=== PATIENT | male | born 1985 | race Caucasian/White ===

== ENCOUNTER 2018-11-12 09:03 | Emergency (ER) | payer MEDICARE, OTHER ==
[~2018-11-12] VITALS: Ht 185.4 cm; Wt 128.8 kg
[2018-11-12 09:03] VITALS: BP 138/92
[~2018-11-12 09:03] MED LIST: ACET65TA OR; ALLE25CA OR; AMBI10TA OR; BACL10TA2 OR; CYMBALTA PO; DEPA500T2 OR; LACT10SO PO; LEXA1TAB2 OR; PRAZOSIN PO; QUET30TA OR; SERO1TAB OR; TRAZ100T OR; norco OR
[2018-11-12] MEDS ORDERED: OXYC1TAB23 PO ×2 (09:10)
[2018-11-12] MEDS ORDERED: VENL75TA2 PO (09:10)
[2018-11-12] MEDS ORDERED: TRAM50TA2 PO (09:10)
[2018-11-12] MEDS ORDERED: ATOR40TA75 PO (09:10)
[2018-11-12] MEDS ORDERED: PRED10TA2 PO (09:25)
[2018-11-12] MEDS ORDERED: ROBA500T PO (09:25)
== END 2018-11-12 09:43 | disposition home or self-care (01) ==
LOC: M ED 09:03
DX: S39.012A Strain of muscle, fascia and tendon of lower back, initial encounter (principal); X50.9XXA Other and unspecified overexertion or strenuous movements or postures, initial encounter; Y92.89 Other specified places as the place of occurrence of the external cause; E78.5 Hyperlipidemia, unspecified; F33.9 Major depressive disorder, recurrent, unspecified; F41.9 Anxiety disorder, unspecified; Z87.891 Personal history of nicotine dependence

== ENCOUNTER → 2019-05-04 | Outpatient (CLI) | payer OTHER ==
[~2019-05-04] MED LIST changes: +ATOR40TA75 PO; +OXYC1TAB23 PO; +PRED10TA2 PO; +ROBA500T PO; +TRAM50TA2 PO; +VENL75TA2 PO
--- NOTE | 2019-05-15 02:10 | ECWPNPC ---
PATIENT NAME: LISY ANGULO : 1985 GENDER: MALE VISIT DATE: 05/04/2019 DISCHARGE DATE: 05/04/19 1324 VISIT LOCKED DATE TIME: PHYSICIAN: KOTA BARRAGAN MD RESOURCE: KOTA BARRAGAN MD REASON FOR APPOINTMENT 1. CHRONIC LOW BACK/NECKPAIN HISTORY OF PRESENT ILLNESS NEW PATIENT CONSULT: WHEN DID YOUR PAIN FIRST START? . BRIEFLY DESCRIBE HOW YOUR PAIN STARTED? . HOW DOES YOUR PAIN CHANGE WITH TIME? . DOES YOUR PAIN AWAKEN YOU FROM SLEEP? . HOW MANY HOURS OF SLEEP DO YOU NORMALLY GET? . ANY DIAGNOSTIC TESTING? . FACILITY WHERE TESTS WERE DONE? ____. PAIN TREATMENT TREATMENT YES CANCER HAVE YOU EVER HAD ANY TYPE OF CANCER?NO NO. 34 YEAR OLD MALE PATIENT WITH A HISTORY OF CHRONIC BACK PAIN. THE PATIENT DESCRIBES THE PAIN ACHING, SORE, SHARP, STABBING, SHOOTING, DAILY, AND CONTINUOUS WITH A PAIN SCORE OF 4-10/10 DEPENDING ON PHYSICAL ACTIVITY. THE PATIENT STATES HIS PAIN IS LOCATED MAINLY IN HIS THORACIC AND LOWER BACK, WITH PAIN RADIATING DOWN BOTH LEGS. 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 THE PATIENT SAYS HIS PAIN IS AFFECTING HIS ABILITY TO PERFORM HIS DAILY ACTIVITIES SUCH GROCERY SHOPPING, CLEANING, AND WORKING AROUND HIS HOUSE. THE PATIENT SAYS HE HAS BEEN RECEIVING INJECTION THERAPY IN [place] AND HE IS INTERESTED IN RECEIVING THEM HERE INSTEAD. PATIENT DENIES UNEXPLAINABLE WEIGHT LOSS, FEVER, CHILLS, NEW CHANGES ON HIS URINARY OR BOWEL CONTROL. PAIN SCREENING: PATIENT HAS A COMPLAINT OF ACUTE OR CHRONIC PAIN :YES FALL RISK SCREENING: SCREENING : NO FALLS IN THE PAST YEAR. MISHRA INVENTORY: QUESTIONNAIRE ASSESSEDTBD SCORE VALUE CALCULATED TBD CURRENT MEDICATIONS TAKING CETIRIZINE HCL 10 MG TABLET 1 TABLET ORALLY ONCE A DAY TAKING HYDROXYZINE HCL 50 MG TABLET 1 TABLET NEEDED ORALLY 3 TIMES A DAY NEEDED TAKING OXYCODONE HCL 5 MG TABLET 1 1/2 TABLETS NEEDED ORALLY TWICE A DAY TAKING PRAZOSIN HCL 2 MG CAPSULE 1 CAPSULE AT BEDTIME ORALLY ONCE A DAY TAKING ROSUVASTATIN CALCIUM 40 MG TABLET 1 TABLET ORALLY ONCE A DAY TAKING TRAMADOL HCL 50 MG TABLET 2 TABLETS NEEDED ORALLY 3 TIMES A DAY NEEDED TAKING VENLAFAXINE HCL ER 75 MG CAPSULE EXTENDED RELEASE 24 HOUR 3 CAPSULES WITH FOOD ORALLY ONCE A DAY TAKING CHOLECALCIFEROL 1000 UNIT CAPSULE 1 CAPSULE ORALLY ONCE A DAY NOT-TAKING MINIPRESS 1 MG CAPSULE 1 CAP(S) ORALLY PRN NOT-TAKING CITALOPRAM HYDROBROMIDE 20 MG TABLET 1 TABLET ORALLY ONCE A DAY NOT-TAKING LUNESTA 1 MG TABLET 1 TABLET IMMEDIATELY BEFORE BEDTIME ORALLY ONCE A DAY DISCONTINUED VENLAFAXINE HCL 75 MG TABLET 1 TABLET WITH FOOD ORALLY ONCE A DAY MEDICATION LIST REVIEWED AND RECONCILED WITH THE PATIENT PAST MEDICAL HISTORY DEPRESSION L SHOULDER PAIN INSOMNIA BORDERLINE DIABETES ELEVATED CHOLESTEROL INCREASED APPETITE SLEEP APNEA MIGRAINES LOW BACK PAIN NECK PAIN ALLERGIES N.K.D.A. SURGICAL HISTORY DENIES PAST SURGICAL HISTORY FAMILY HISTORY FATHER: ALIVE 52 YRS MOTHER: ALIVE 50 YRS SIBLINGS: ALIVE 3 SISTER(S) - HEALTHY. 2 SON(S) , 3 DAUGHTER(S) - HEALTHY. NEGATIVE FOR ANY UROLOGIC DISEASE. SOCIAL HISTORY GENERAL: TOBACCO USE ARE YOU A:NONSMOKER HOUSING: HOME. EDUCATION LEVEL OF EDUCATION:FINISHED HIGH SCHOOL DIET: REGULAR. LANGUAGE LANGUAGES SPOKEN:MAURITIAN RECREATIONAL DRUG USE DRUG USE?NO EXERCISE: WALKS. LEARNING BARRIERS / SPECIAL NEEDS BARRIERS TO LEARNING?YES READING AND WRITING LEARNING DISABILITY. IS ABLE TO READ AT MORE THAN 6TH GRADE LEVEL. HEARING IMPAIRED?NO VISION IMPAIRED?NO COGNITIVELY IMPAIRED?NO READINESS TO LEARN?NO LEARNING PREFERENCES?YES DEMONSTRATION AND EXPLANATION LEARNING CAPABILITIES PRESENT?NO EMOTIONAL BARRIERS?NO SPECIAL DEVICES?NO ITEM REPAIR MANAGER NEEDED?NO PAIN CLINIC PFS, CLERGY, PUBLIC HEALTH REFERRALS PFS REFERRAL NEEDED?NO CLERGY REFERRAL NEEDED?NO PUBLIC HEALTH REFERRAL NEEDED?NO WAS THE PROVIDER NOTIFIED OF ANY PERTINENT INFO?NO HAS THE PATIENT BEEN EDUCATED REGARDING HIS/HER PLAN OF CARE?YES HAS THE PATIENT BEEN EDUCATED REGARDING PAIN, THE RISK FOR PAIN, THE IMPORTANCE OF EFFECTIVE PAIN MANAGEMENT, AND THE PAIN ASSESSMENT PROCESS?YES LATEX QUESTIONNAIRE LATEX ALLERGY : HAVE YOU EVER DEVELOPED ANY TYPE OF REACTION AFTER HANDLING LATEX PRODUCTS SUCH RUBBER GLOVES, CONDOMS, DIAPHRAGMS, BALLOONS, SOCKS, OR UNDERWEAR?NO LATEX ALLERGY : HAVE YOU EVER DEVELOPED ANY TYPE OF REACTION DURING OR AFTER DENTAL APPOINTMENT, VAGINAL/RECTAL EXAMINATION, SURGICAL PROCEDURE, OR ANY OTHER EXPOSURE?NO LATEX RISK : HAVE YOU EVER HAD ANY DIFFICULTY BREATHING OR HIVES AFTER EATING OR HANDLING ANY FRUITS, OR VEGETABLES; SUCH KIWI, BANANAS, STONE FRUITS, OR CHESTNUTSNO LATEX RISK : DO YOU HAVE A PREVIOUS PERSONAL HISTORY OF MORE THAN NINE SURGERIES, SPINA BIFIDA, OR REPEATED CATHERIZATIONS? NO LATEX RISK : ARE YOU FREQUENTLY EXPOSED TO LATEX PRODUCTS IN YOUR OCCUPATION?NO DATE ASKED : 05/04/2019 CAFFEINE CAFFEINE USE?YES HOW OFTEN AND HOW MUCH? COFFEE 1 CUP PER DAY ADVANCE DIRECTIVE ADVANCE DIRECTIVE DISCUSSED WITH PATIENT:YES INFORMATION OFFERED AND DECLINED. HOAHAOISM [id number] NONE MARITAL STATUS: SINGLE. ALCOHOL SCREENING DID YOU HAVE A DRINK CONTAINING ALCOHOL IN THE PAST YEAR?NO POINTS0 INTERPRETATIONNEGATIVE OCCUPATION: POLICE. HOSPITALIZATION/MAJOR DIAGNOSTIC PROCEDURE DENIES PAST HOSPITALIZATION REVIEW OF SYSTEMS REVIEWED BY: PROVIDER: KOTA BARRAGAN MD . CONSTITUTIONAL: ANY CHANGE IN YOUR MEDICAL CONDITION? NO . CHILLS NO . FEVER NO . INFECTION: DO YOU HAVE NEW INFECTIONS? YES - EAR INFECTION . DO YOU HAVE HISTORY OF MRSA? NO . MUSCULOSKELETAL: ANY NEW PATTERNS OF PAIN OR NUMBNESS? NO . SYTEMIC LUPUS NO . GASTROENTEROLOGY: ANY NEW CHANGE IN BOWEL CONTROL? NO . BARRETTS ESOPHAGUS NO . CIRRHOSIS NO . HEPATITIS NO . LIVER FAILURE NO . ACID REFLUX NO . UNEXPLAINED WEIGHT LOSS NO . GENITOURINARY: ANY NEW CHANGE IN BLADDER CONTROL? NO . IS THERE A CHANCE YOU COULD BE ? NO . HEMATOLOGY/LYMPH: DO YOU TAKE ANY BLOOD THINNERS? (FOR EXAMPLE- COUMADIN, PLAVIX, AGGRENOX, PLATEL, PRADAXA, OR XARELTO) NO . WHEN WAS YOUR LAST DOSE? DATE: TIME: . LOW PLATELET COUNT NO . SICKLE CELL DISEASE NO . VON WILLIEBRANDS NO . FACTOR V LEIDEN NO . THALLASEMIA NO . ANEMIA NO . EASY BRUISING NO . NEUROLOGY: HAVE YOU FALLEN IN THE PAST 12 MONTHS? YES . ANY NEW EXTREMITY NUMBNESS OR WEAKNESS? NO . HEAD INJURY NO . DEMENTIA NO . CEREBRAL PALSY NO . MULTIPLE SCLEROSIS NO . DIZZINESS NO . HEADACHE NO . STROKES NO . VERTIGO NO . CARDIOLOGY: DO YOU HAVE A PACEMAKER OR DEFIBRILLATOR? NO . ANGINA NO . HEART ATTACK NO . HEART SURGERY NO . CONGESTIVE HEART FAILURE/FLUID OVERLOAD NO . CHEST PAIN NO . HIGH BLOOD PRESSURE NO . IRREGULAR HEART BEAT NO . RESPIRATORY: HAVE YOU BEEN SICK IN THE PAST WEEK? NO . FEVER NO . FLU LIKE SYMPTOMS? NO . CPAP NO . BYPAP NO . ASTHMA NO . EMPHYSEMA NO . CHRONIC LUNG DISEASES NO . SHORTNESS OF BREATH ON EXERTION NO . DO YOU USE ANY TYPE OF TOBACCO (SMOKE, SMOKELESS, CHEW)? NO . COUGH NO . SNORING NO . INTEGUMENTARY: DO YOU HAVE ANY RASHES OR OPEN SORES? NO . ALLERGIC/IMMUNO: ARE YOU ALLERGIC TO IV DYE? NO . ANY NEW ALLERGIES? NO . PSYCHIATRIC: DO YOU HAVE THOUGHTS OF HURTING YOURSELF OR SOMEONE ELSE? NO . ARE YOU ABUSED, NEGLECTED, OR IN AN UNSAFE ENVIRONMENT? NO . ENDOCRINOLOGY: ARE YOU DIABETIC? NO . THYROID DISORDER NO . OTHER: DO YOU NEED ANY PRESCRIPTIONS? NO . IF YES, PLEASE LIST: ____ . ANY NEW PROBLEMS WITH YOUR MEDICATIONS? NO . WHEN DID YOU LAST EAT? ____ . WHEN DID YOU LAST DRINK? ____ . WHAT DID YOU LAST DRINK? ____ . NAME OF PERSON DRIVING YOU HOME? ____ . DO YOU HAVE ANY OTHER QUESTIONS OR CONCERNS NO . VITAL SIGNS WT 275.2 LBS, HT 73 IN, BMI 36.30 INDEX, BP 137/90 MM HG, HR 59 /MIN, RR 18 /MIN, TEMP 96.9 F, OXYGEN SAT % 99%, NA INITIALS SC 11:45, REVIEWED BY: YESSENIA. EXAMINATION GENERAL EXAMINATION: PATIENT IS ALERT O X 3 AND COOPERATIVE. LUNGS CLEAR, TO AUSCULTATION. HEART: NO MURMURS OR GALLOPS; FACIAL CRANIAL NERVES ARE GROSSLY NORMAL. GOOD SYMMETRY OF FACIAL MUSCLE MOVEMENT. NORMAL VISUAL COTTER. TENDERNESS OVER THE PARASPINAL MUSCLE GROUP OF THE LOW BACK. PRESENCE OF BANDS OF TISSUE AND TRIGGER POINTS WITH RESTRICTION OF MOVEMENT OF THE LOW BACK. PAIN INCREASES OVER THE LUMBAR FACET JOINTS WITH EXTENSION AND LATERAL ROTATION OF THE LOW BACK. MRI OF THE LUMBAR SPINE DONE ON 10/29/2011 SHOWS BULGING DISCS AND FACET ARTHROPATHY CHANGES AT MULTIPLE LEVELS. ASSESSMENTS MYALGIA, OTHER SITE - M79.18 (PRIMARY) OTHER CHRONIC PAIN - G89.29 LOW BACK PAIN - M54.5 SPONDYLOSIS WITHOUT MYELOPATHY OR RADICULOPATHY, LUMBAR REGION - M47.816 TREATMENT MYALGIA, OTHER SITE CLINICAL NOTES: WE DISCUSSED SEVERAL ISSUES WITH MR. ANGULO'S PAIN MANAGEMENT CASE. DUE TO THE TRIGGER POINTS, BANDS OF TISSUE, AND RESTRICTION OF MOVEMENT, I WOULD LIKE TO MOVE FORWARD WITH A LOW BACK TRIGGER POINT INJECTION AT THIS TIME. WE DISCUSSED THE BENEFITS, RISKS, AND ALTERNATIVES OF THE INJECTION AND THE PATIENT WOULD LIKE TO PROCEED. I AM LOOKING FOR LONG LASTING PAIN RELIEF FROM THIS INJECTION FOR THE PATIENT. THE PATIENT IS CURRENTLY RECEIVING MEDICATION MANAGEMENT WITH HIS PRIMARY CARE PROVIDER AND WILL CONTINUE RECEIVING MEDICATION THERE. I AM ORDERING FOR AN UPDATED LUMBAR MRI SINCE THE LAST ONE WAS DONE IN 2011 AND TO SEE IF HIS CONDITION HAS CHANGED. THE PATIENT WILL FOLLOW UP IN SEVERAL WEEKS AFTER THE INJECTION TO SEE HOW IT IS HELPING WITH HIS PAIN AND ALSO TO REVIEW HIS MRI RESULTS. INSTRUCTIONS WERE GIVEN, QUESTIONS WERE ANSWERED, PATIENT REPORTS UNDERSTANDING AND AGREES WITH THE PLAN. I, NITHYA MORRISSEY, DOCUMENTED THE ABOVE INFORMATION ACTING A SCRIBE FOR DR. BARRAGAN. I HAVE REVIEWED THE ABOVE DOCUMENT, WRITTEN BY NITHYA ROMAN AND I VERIFY THAT IT IS ACCURATE. DEAR ELSA GONZALEZ NP: THANK YOU FOR YOUR KIND REFERRAL OF LISY ANGULO. IF YOU WANT TO DISCUSS HIS CASE WITH ME PLEASE CALL ME AT THE PAIN CENTER AT [phone]. SINCERELY, KOTA BARRAGAN MD PAIN MEDICINE . OTHER CHRONIC PAIN [facility] MRI LUMBAR W/O CONTRAST (CPT [id number],ASHLEY 05/04/2019 2:25:52 PM > AUTH [id number]. FOR 180 DAYS FROM 03-05-19 FOR TX PERTAINING TO LOW BACK/NECK PAIN, INCLUDES INJECTIONS ,DIAGNOSTICS ETC. NO AUTH REQUIRED. LOW BACK PAIN [facility] MRI LUMBAR W/O CONTRAST (CPT [id number],ASHLEY 05/04/2019 2:25:52 PM > AUTH [id number]. FOR 180 DAYS FROM 03-05-19 FOR TX PERTAINING TO LOW BACK/NECK PAIN, INCLUDES INJECTIONS ,DIAGNOSTICS ETC. NO AUTH REQUIRED. OTHERS NOTES: PATIENT EDUCATION WAS PRINTED, REVIEWED WITH PT. PREVENTIVE MEDICINE PAIN CLINIC TEACHING: THE PATIENT HAS BEEN EDUCATED REGARDING HIS/HER PLAN OF CARE : REVIEWED AND DISCUSSED PROCEDURE INSTRUCTIONS. PROCEDURE CODES FA211 ESTABILISHED PATIENT [facility] FAC[facility] CHARGE G8427 CURRENT MEDS W/DOSAGES DOCUMENTED G8730 PAIN ASSESS POS TOOL F/U PLAN DOC DISPOSITION & COMMUNICATION FOLLOW UP REASON: TPI/ORDERED LUMBAR MRI ELECTRONICALLY SIGNED BY KOTA BARRAGAN MD, MD ON 05/14/2019 AT 12:25 PM EST DISCLAIMER : THIS IS A VISIT SUMMARY EXTRACTED FROM THE [employer] CHART. IT IS NOT A COPY OF THE [employer] PROGRESS NOTE. MARIVEL
== END ==
LOC: M PAIN 11:30
PROVIDERS: ATTEND Anesthesiology
DX: M79.18 Myalgia, other site (principal); G89.29 Other chronic pain; M54.5 Low back pain; M47.816 Spondylosis without myelopathy or radiculopathy, lumbar region; Z86.59 Personal history of other mental and behavioral disorders; G47.00 Insomnia, unspecified; G47.30 Sleep apnea, unspecified; G43.909 Migraine, unspecified, not intractable, without status migrainosus; Z79.899 Other long term (current) drug therapy

== ENCOUNTER → 2019-05-19 | Outpatient (CLI) | payer OTHER ==
--- NOTE | 2019-05-21 10:31 | REP ---
MRI lumbar spine: 05/19/2019. Indication: Low back pain. Comparison: 11/06/2011. Technique: Multiplanar short and long TR sequences of the lumbar spine were obtained without IV Gadolinium. Findings: Vertebral body alignment is within anatomical limits. Disc dessication is noted at L3/L4, L4/L5 and L5/S1. Very rudimentary S1/S2 disc is noted. No significant paraspinal soft tissue abnormalities are detected. L1/L2 and L2/L3: There is no focal disc herniation or significant spinal canal / neural foraminal narrowing. L3/L4: Mild diffuse disc bulge and bilateral facet arthropathy are present with moderate bilateral recess narrowing. The neural foramen are patent. L4/L5: Mild diffuse disc bulge and bilateral facet arthropathy are present. Mild to moderate recess narrowing bilaterally. The neural foramen are patent. L5/S1: There is a small posterior central disc protrusion superimposed on a mild diffuse disc bulge. Mild left greater than right facet arthropathy is noted. There is mild bilateral recess narrowing. There is moderate right and mild to moderate left neural foraminal narrowing. Impression: Multilevel degenerative sequelae as described without severe spinal stenosis. Electronically Signed by Boyd Alonzo DO 05/21/2019 10:22 A
== END ==
LOC: M RAD 11:31
PROVIDERS: ATTEND Anesthesiology
DX: G89.29 Other chronic pain (principal); M51.26 Other intervertebral disc displacement, lumbar region; M51.27 Other intervertebral disc displacement, lumbosacral region

== ENCOUNTER → 2019-06-25 | Outpatient (CLI) | payer OTHER ==
[~2019-06-25] MED LIST changes: +BUPIVACAINE HCL 0.25% 10 ML VIAL As Ordered ONE; +BUPIVACAINE HCL 0.25% 30 ML VIAL As Ordered ONE; +NORCO, ANEXSIA 5/325MG TABLET (HYDROcodone/ACETAMINOPHEN) As Ordered ONE; +TRIAMCINOLONE ACETONIDE SUSP 40 MG/ML VIAL (J3301) As Ordered ONE; +diazePAM 5 MG TAB As Ordered ONE
--- NOTE | 2019-06-27 01:41 | ECWPNPC ---
PATIENT NAME: LISY ANGULO : 1985 GENDER: MALE VISIT DATE: 06/25/2019 DISCHARGE DATE: 06/25/191702 VISIT LOCKED DATE TIME: PHYSICIAN: KOTA BARRAGAN MD RESOURCE: KOTA BARRAGAN MD REASON FOR APPOINTMENT 1. TPI LOW BACK HISTORY OF PRESENT ILLNESS HISTORY OF PRESENT ILLNESS: PAIN THE PATIENT DESCRIBES THE PAIN... FALL RISK SCREENING: SCREENING :NO FALLS REPORTED IN THE LAST YEAR CURRENT MEDICATIONS TAKING CETIRIZINE HCL 10 MG TABLET 1 TABLET ORALLY ONCE A DAY, NOTES: 06/25/19729 TAKING HYDROXYZINE HCL 50 MG TABLET 1 TABLET NEEDED ORALLY 3 TIMES A DAY NEEDED, NOTES: 06/22/19 TAKING OXYCODONE HCL 5 MG TABLET 1 1/2 TABLETS NEEDED ORALLY TWICE A DAY, NOTES: 06/25/19729 TAKING PRAZOSIN HCL 2 MG CAPSULE 1 CAPSULE AT BEDTIME ORALLY ONCE A DAY, NOTES: 06/24/191999 TAKING ROSUVASTATIN CALCIUM 40 MG TABLET 1 TABLET ORALLY ONCE A DAY, NOTES: 06/24/191699 TAKING TRAMADOL HCL 50 MG TABLET 2 TABLETS NEEDED ORALLY 3 TIMES A DAY NEEDED, NOTES: 06/25/19729 TAKING VENLAFAXINE HCL ER 75 MG CAPSULE EXTENDED RELEASE 24 HOUR 3 CAPSULES WITH FOOD ORALLY ONCE A DAY, NOTES: 06/25/19729 TAKING CHOLECALCIFEROL 1000 UNIT CAPSULE 1 CAPSULE ORALLY ONCE A DAY, NOTES: 06/25/19729 NOT-TAKING MINIPRESS 1 MG CAPSULE 1 CAP(S) ORALLY PRN NOT-TAKING CITALOPRAM HYDROBROMIDE 20 MG TABLET 1 TABLET ORALLY ONCE A DAY NOT-TAKING LUNESTA 1 MG TABLET 1 TABLET IMMEDIATELY BEFORE BEDTIME ORALLY ONCE A DAY MEDICATION LIST REVIEWED AND RECONCILED WITH THE PATIENT PAST MEDICAL HISTORY DEPRESSION - PTSD L SHOULDER PAIN INSOMNIA BORDERLINE DIABETES ELEVATED CHOLESTEROL INCREASED APPETITE SLEEP APNEA MIGRAINES LOW BACK PAIN NECK PAIN ALLERGIES N.K.D.A. SURGICAL HISTORY DENIES PAST SURGICAL HISTORY FAMILY HISTORY FATHER: ALIVE 52 YRS MOTHER: ALIVE 50 YRS SIBLINGS: ALIVE 3 SISTER(S) - HEALTHY. 2 SON(S) , 3 DAUGHTER(S) - HEALTHY. NEGATIVE FOR ANY UROLOGIC DISEASE. SOCIAL HISTORY GENERAL: TOBACCO USE ARE YOU A:NONSMOKER HOUSING: HOME. EDUCATION LEVEL OF EDUCATION:FINISHED HIGH SCHOOL DIET: REGULAR. LANGUAGE LANGUAGES SPOKEN:VIETNAMESE RECREATIONAL DRUG USE DRUG USE?NO EXERCISE: WALKS. LEARNING BARRIERS / SPECIAL NEEDS BARRIERS TO LEARNING?YES READING AND WRITING LEARNING DISABILITY. IS ABLE TO READ AT MORE THAN 6TH GRADE LEVEL. HEARING IMPAIRED?NO VISION IMPAIRED?NO COGNITIVELY IMPAIRED?NO READINESS TO LEARN?NO LEARNING PREFERENCES?YES DEMONSTRATION AND EXPLANATION LEARNING CAPABILITIES PRESENT?NO EMOTIONAL BARRIERS?NO SPECIAL DEVICES?NO MANUFACTURING ENGINEER AUTOMOTIVE NEEDED?NO PAIN CLINIC PFS, CLERGY, PUBLIC HEALTH REFERRALS PFS REFERRAL NEEDED?NO CLERGY REFERRAL NEEDED?NO PUBLIC HEALTH REFERRAL NEEDED?NO WAS THE PROVIDER NOTIFIED OF ANY PERTINENT INFO?NO HAS THE PATIENT BEEN EDUCATED REGARDING HIS/HER PLAN OF CARE?YES HAS THE PATIENT BEEN EDUCATED REGARDING PAIN, THE RISK FOR PAIN, THE IMPORTANCE OF EFFECTIVE PAIN MANAGEMENT, AND THE PAIN ASSESSMENT PROCESS?YES LATEX QUESTIONNAIRE LATEX ALLERGY : HAVE YOU EVER DEVELOPED ANY TYPE OF REACTION AFTER HANDLING LATEX PRODUCTS SUCH RUBBER GLOVES, CONDOMS, DIAPHRAGMS, BALLOONS, SOCKS, OR UNDERWEAR?NO LATEX ALLERGY : HAVE YOU EVER DEVELOPED ANY TYPE OF REACTION DURING OR AFTER DENTAL APPOINTMENT, VAGINAL/RECTAL EXAMINATION, SURGICAL PROCEDURE, OR ANY OTHER EXPOSURE?NO LATEX RISK : HAVE YOU EVER HAD ANY DIFFICULTY BREATHING OR HIVES AFTER EATING OR HANDLING ANY FRUITS, OR VEGETABLES; SUCH KIWI, BANANAS, STONE FRUITS, OR CHESTNUTSNO LATEX RISK : DO YOU HAVE A PREVIOUS PERSONAL HISTORY OF MORE THAN NINE SURGERIES, SPINA BIFIDA, OR REPEATED CATHERIZATIONS? NO LATEX RISK : ARE YOU FREQUENTLY EXPOSED TO LATEX PRODUCTS IN YOUR OCCUPATION?NO DATE ASKED : 05/04/2019 CAFFEINE CAFFEINE USE?YES HOW OFTEN AND HOW MUCH? COFFEE 1 CUP PER DAY ADVANCE DIRECTIVE ADVANCE DIRECTIVE DISCUSSED WITH PATIENT:YES 06/22/19 PATIENT HAS NO ADVANCED DIRECTIVES. HCP INFORMATION OFFERED AND DECLINED. TOSHIA ANGLICAN [id number] NONE MARITAL STATUS: SINGLE. ALCOHOL SCREENING DID YOU HAVE A DRINK CONTAINING ALCOHOL IN THE PAST YEAR?NO POINTS0 INTERPRETATIONNEGATIVE OCCUPATION: POLICE. PRE-SCREENING COMPLETED 06/22/19 1140 JS. HOSPITALIZATION/MAJOR DIAGNOSTIC PROCEDURE DENIES PAST HOSPITALIZATION REVIEW OF SYSTEMS REVIEWED BY: PROVIDER: . CONSTITUTIONAL: ANY CHANGE IN YOUR MEDICAL CONDITION? NO . CHILLS NO . FEVER NO . INFECTION: DO YOU HAVE NEW INFECTIONS? NO . DO YOU HAVE HISTORY OF MRSA? NO . MUSCULOSKELETAL: ANY NEW PATTERNS OF PAIN OR NUMBNESS? NO . GASTROENTEROLOGY: ANY NEW CHANGE IN BOWEL CONTROL? NO . GENITOURINARY: ANY NEW CHANGE IN BLADDER CONTROL? NO . IS THERE A CHANCE YOU COULD BE ? NO . HEMATOLOGY/LYMPH: DO YOU TAKE ANY BLOOD THINNERS? (FOR EXAMPLE- COUMADIN, PLAVIX, AGGRENOX, PLATEL, PRADAXA, OR XARELTO) NO . WHEN WAS YOUR LAST DOSE? DATE: TIME: . NEUROLOGY: HAVE YOU FALLEN IN THE PAST 12 MONTHS? YES PT REPORTS HE SLIPPED ON THE ICE A COUPLE OF WEEKS AGO, DENIES INJURY. NO ED VISIT OR MD VISIT, NO XRAYS . ANY NEW EXTREMITY NUMBNESS OR WEAKNESS? NO . CARDIOLOGY: DO YOU HAVE A PACEMAKER OR DEFIBRILLATOR? NO . RESPIRATORY: HAVE YOU BEEN SICK IN THE PAST WEEK? NO . FEVER NO . FLU LIKE SYMPTOMS? NO . COUGH NO . INTEGUMENTARY: DO YOU HAVE ANY RASHES OR OPEN SORES? NO . ALLERGIC/IMMUNO: ARE YOU ALLERGIC TO IV DYE? NO . ANY NEW ALLERGIES? NO . PSYCHIATRIC: DO YOU HAVE THOUGHTS OF HURTING YOURSELF OR SOMEONE ELSE? NO . ARE YOU ABUSED, NEGLECTED, OR IN AN UNSAFE ENVIRONMENT? NO . ENDOCRINOLOGY: ARE YOU DIABETIC? NO . OTHER: DO YOU NEED ANY PRESCRIPTIONS? NO . IF YES, PLEASE LIST: ____ . ANY NEW PROBLEMS WITH YOUR MEDICATIONS? NO . WHEN DID YOU LAST EAT? 06/25/19 0845 . WHEN DID YOU LAST DRINK? ____06/25/19 1230 . WHAT DID YOU LAST DRINK? ____WATER . NAME OF PERSON DRIVING YOU HOME? ____JESSICA . DO YOU HAVE ANY OTHER QUESTIONS OR CONCERNS NO . VITAL SIGNS WT 271 LBS, HT 73 IN, BMI 35.75 INDEX, BP 125/85 MM HG, HR 78 /MIN, RR 18 /MIN, TEMP 97.0 F, OXYGEN SAT % 97%, SAFE IN ENV? (Y/N) YES, NA INITIALS SC 15:19, REVIEWED BY: ASSESSMENTS MYALGIA, OTHER SITE - M79.18 (PRIMARY) PROCEDURES PN TRIGGER POINT INJECTION WITH STEROIDS PRE PROCEDURE DIAGNOSIS 1. MYALGIA 2. PAIN AT BILATERAL LOW BACK AREA. POST PROCEDURE DIAGNOSIS 1. MYALGIA 2. PAIN AT BILATERAL LOW BACK AREA. PROCEDURE TRIGGER POINT INJECTION AT RIGHT AND LEFT LOW BACK AREA. SURGEON DR. KOTA BARRAGAN MARKETING PLANNER NONE ANESTHESIA LOCAL PRE PROCEDURE NOTE THE PATIENT HAS A HISTORY OF CHRONIC PAIN AT THE RIGHT AND LEFT LOW BACK AREA. I EVALUATED THE PATIENT AND REVIEWED THE CHART. THERE IS EVIDENCE OF BANDS OF TISSUE WITH RESTRICTION OF MOVEMENT AND PRESENCE OF TRIGGER POINT AT THE AFFECTED AREA. I WENT OVER THE RISKS, ALTERNATIVES, AND BENEFITS ASSOCIATED WITH THIS PROCEDURE. THE PATIENT WOULD LIKE TO PROCEED AND GIVES CONSENT TO PERFORM THE PROCEDURE. THE PATIENT DENIES UNEXPLAINABLE WEIGHT LOSS, FEVER, CHILLS, OR NEW CHANGES IN URINARY OR BOWEL CONTROL DESCRIPTION OF PROCEDURE THE PATIENT WAS BROUGHT TO THE PROCEDURE ROOM AND PLACED IN THE SITTING POSITION. THE AREA WAS CLEANED WITH ALCOHOL. THE PROCEDURE WAS DONE USING ASEPTIC STERILE TECHNIQUE. I CHECKED LATERALITY AND THE LEVEL WHERE THE PROCEDURE WAS GOING TO BE PERFORMED WITH THE PATIENT AND THE SUPPORTING STAFF AT THE MOMENT OF THE TIME OUT IN THE PROCEDURE ROOM. USING A 25-GAUGE NEEDLE, TRIGGER POINTS WERE INJECTED AT THE RIGHT AND LEFT LOW BACK AREA WITH A TOTAL OF 40 ML OF BUPIVACAINE 0.25% AND KENALOG 40 MG. THERE WAS NO EVIDENCE OF BLOOD, PARESTHESIA OR CEREBROSPINAL FLUID DURING THE PROCEDURE. THE PATIENT WAS SENT TO THE RECOVERY ROOM. THE PATIENT WAS MOVING THE EXTREMITIES AND DOING WELL. THERE WAS NO COMPLICATION DURING THE PROCEDURE POST PROCEDURE NOTE I AM LOOKING FOR LONG LASTING PAIN RELIEF WITH THIS INJECTION. THE PATIENT WILL BE SEEN IN A FOLLOW UP IN THE NEXT FEW WEEKS. INSTRUCTIONS WERE GIVEN, QUESTIONS WERE ANSWERED, AND THE PATIENT EXPRESSED UNDERSTANDING AND AGREES WITH THE PLAN. I, NITHYA MORRISSEY, DOCUMENTED THE ABOVE INFORMATION ACTING A SCRIBE FOR DR. BARRAGAN. I HAVE REVIEWED THE ABOVE DOCUMENT, WRITTEN BY NITHYA MORRISSEY SCRIBRoya AND I VERIFY THAT IT IS ACCURATE. PROCEDURE CODES 96813 INJ TRIGGER POINT 07/12 [facility] [place] DISPOSITION & COMMUNICATION FOLLOW UP 3 WEEKS ELECTRONICALLY SIGNED BY KOTA BARRAGAN MD, MD ON 06/26/2019 AT 05:16 PM EST DISCLAIMER : THIS IS A VISIT SUMMARY EXTRACTED FROM THE [employer] CHART. IT IS NOT A COPY OF THE [employer] PROGRESS NOTE. MARIVEL
== END ==
LOC: M PAIN 15:00
PROVIDERS: ATTEND Anesthesiology
DX: M79.18 Myalgia, other site (principal); Z86.59 Personal history of other mental and behavioral disorders; G47.00 Insomnia, unspecified; G47.30 Sleep apnea, unspecified; G43.909 Migraine, unspecified, not intractable, without status migrainosus; Z79.899 Other long term (current) drug therapy
CPT/HCPCS: 20552; J3301

== ENCOUNTER → 2020-04-04 | Outpatient (REF) | payer OTHER ==
[~2020-04-04] MED LIST changes: -BUPIVACAINE HCL 0.25% 10 ML VIAL As Ordered ONE; -BUPIVACAINE HCL 0.25% 30 ML VIAL As Ordered ONE; -NORCO, ANEXSIA 5/325MG TABLET (HYDROcodone/ACETAMINOPHEN) As Ordered ONE; -TRIAMCINOLONE ACETONIDE SUSP 40 MG/ML VIAL (J3301) As Ordered ONE; -diazePAM 5 MG TAB As Ordered ONE
== END ==
LOC: M LAB REF 21:29
PROVIDERS: ATTEND Physician Assistant
DX: R05 Cough (principal)

== ENCOUNTER 2023-02-25 21:57 | Emergency (ER) | payer OTHER ==
[~2023-02-25] VITALS: Ht 193 cm; Wt 125.3 kg
[2023-02-25 23:58] VITALS: BP 127/81; TEMP 97.8; O2SAT 98
[2023-02-26] MEDS ORDERED: LIDO5DIS41 TD (00:23)
[2023-02-26] MEDS ORDERED: METH-1165 PO (00:23)
[2023-02-26] MEDS ORDERED: PRED20TA PO (00:23)
[2023-02-26] MEDS ORDERED: KETOROLAC 60MG 2ML VIAL IM ONE (00:25)
== END 2023-02-26 00:53 | disposition home or self-care (01) ==
LOC: M ED 21:57
DX: M54.50 Low back pain, unspecified (principal); E78.5 Hyperlipidemia, unspecified; F41.9 Anxiety disorder, unspecified; Z79.02 Long term (current) use of antithrombotics/antiplatelets; Z79.52 Long term (current) use of systemic steroids; Z79.899 Other long term (current) drug therapy
CPT/HCPCS: 96372; 99283; J1885

== ENCOUNTER → 2023-04-18 | Outpatient (CLI) | payer OTHER ==
[~2023-04-18] MED LIST changes: +ISOVUE-370 76% 100ML VIAL As Ordered ONE; +LIDO5DIS41 TD; +METH-1165 PO; +PRED20TA PO
== END ==
LOC: M RAD 08:55
PROVIDERS: ATTEND Internal Medicine
DX: R91.1 Solitary pulmonary nodule (principal)
CPT/HCPCS: 71260; Q9967

== ENCOUNTER 2023-05-02 08:05 | Emergency (ER) | payer OTHER ==
[~2023-05-02] VITALS: Ht 190.5 cm; Wt 124.0 kg
[2023-05-02 08:05] VITALS: BP 143/92; TEMP 98; O2SAT 97
[~2023-05-02 08:05] MED LIST changes: -ISOVUE-370 76% 100ML VIAL As Ordered ONE
[2023-05-02] MEDS ORDERED: METH-1164 PO (08:38)
[2023-05-02] MEDS ORDERED: OXYC10TA12 PO (08:38)
[2023-05-02] MEDS ORDERED: DOXY-443 PO (08:53)
== END 2023-05-02 09:01 | disposition home or self-care (01) ==
LOC: M ED 08:05
DX: A69.20 Lyme disease, unspecified (principal); R21 Rash and other nonspecific skin eruption; R03.0 Elevated blood-pressure reading, without diagnosis of hypertension; E78.5 Hyperlipidemia, unspecified; M54.50 Low back pain, unspecified; F41.9 Anxiety disorder, unspecified; F32.A Depression, unspecified; Z79.02 Long term (current) use of antithrombotics/antiplatelets; Z79.52 Long term (current) use of systemic steroids; Z79.899 Other long term (current) drug therapy

== ENCOUNTER → 2023-09-27 | Outpatient (REF) ==
[~2023-09-27] MED LIST changes: +DOXY-443 PO; +METH-1164 PO; +OXYC10TA12 PO
== END ==
LOC: M PLAIMG 12:58
PROVIDERS: ATTEND Internal Medicine
DX: R52 Pain, unspecified (principal); M46.96 Unspecified inflammatory spondylopathy, lumbar region